=== PATIENT | female | born 1975 | race Caucasian/White ===

== ENCOUNTER → 2016-11-06 | Outpatient (CLI) | payer BC ==
--- NOTE | 2016-11-06 08:23 | USB ---
Reason for exam: follow-up at short interval from prior study. History: Family history of breast cancer in mother at age 55, breast cancer in maternal grandmother at age 70, and breast cancer in maternal aunt. Took hormonal contraceptives for 10 years. Physical Findings: Nurse did not find any significant physical abnormalities on exam. US Breast RT Right breast ultrasound including all four quadrants, the retroareolar region and axilla demonstrates a 0.4 x 0.4 x 0.3cm round lesion too small to characterize, a 0.6 x 0.3 x 0.6cm oval, solid, questionable node at 9 o'clock and a 0.6 x 0.3 x 0.6cm oval, solid, questionable node at 9 o'clock. These results were verbally communicated with the patient and result sheet given to the patient on 11/06/16. ASSESSMENT: Benign, BI-RAD 2 RECOMMENDATION: Return to routine screening mammogram schedule for both breasts. Back on schedule for December 2016.
== END | disposition home or self-care (01) ==
LOC: RADUSWWP 07:00
PROVIDERS: ATTEND Obstetrics & Gynecology
DX: R92.8 Other abnormal and inconclusive findings on diagnostic imaging of breast (principal)

== ENCOUNTER → 2017-01-16 | Outpatient (CLI) | payer BC ==
--- NOTE | 2017-01-17 10:43 | MM ---
Reason for exam: screening (asymptomatic). Last mammogram was performed 1 year ago. History: Family history of breast cancer in mother at age 55, breast cancer in maternal grandmother at age 70, and breast cancer in maternal aunt. Took hormonal contraceptives for 10 years. Physical Findings: A clinical breast exam by your physician is recommended on an annual basis and results should be correlated with mammographic findings. MG 3D Screening Mammo W/Cad Bilateral CC and MLO view(s) were taken. Prior study comparison: January 07, 2016, bilateral MG screening mammo w CAD. August 03, 2011, bilateral digital screening mammo w/CAD. The breast tissue is extremely dense which could obscure a lesion on mammography. There is no discrete abnormality. No significant changes when compared with prior studies. ASSESSMENT: Negative, BI-RAD 1 RECOMMENDATION: Routine screening mammogram of both breasts in 1 year.
== END ==
LOC: RADMAMWWP 07:01
PROVIDERS: ATTEND Obstetrics & Gynecology
DX: Z12.31 Encounter for screening mammogram for malignant neoplasm of breast (principal)
CPT/HCPCS: 77063; G0202

== ENCOUNTER → 2019-11-05 | Outpatient (CLI) | payer BC ==
--- NOTE | 2019-11-05 13:38 | MM ---
Reason for exam: clinical finding. Last mammogram was performed 2 years and 10 months ago. History: Family history of breast cancer in mother at age 55, breast cancer in maternal grandmother at age 70, and breast cancer in maternal aunt at age 60. Took hormonal contraceptives for 10 years. Indicated problem(s): lump or thickening in the right breast. Physical Findings: Nurse Summary: 0.5cm nodule in the right breast retroaeolar (nurse david). MG 3D Diag Mammo W/Cad [facility]AC Bilateral CC and MLO view(s) were taken. Prior study comparison: January 16, 2017, bilateral MG 3d screening mammo w/cad. January 07, 2016, bilateral MG screening mammo w CAD. The breast tissue is heterogeneously dense. This may lower the sensitivity of mammography. No suspicious abnormality in the left breast. Ductal ectasia on the right. These results were verbally communicated with the patient and result sheet given to the patient on 11/05/19. ASSESSMENT: Incomplete: need additional imaging evaluation, BI-RAD 0 RECOMMENDATION: Ultrasound of the right breast. (retroareolar, palpable)
--- NOTE | 2019-11-05 13:39 | USB ---
Reason for exam: additional evaluation requested from abnormal screening. History: Family history of breast cancer in mother at age 55, breast cancer in maternal grandmother at age 70, and breast cancer in maternal aunt at age 60. Took hormonal contraceptives for 10 years. US Breast Limited RT Right limited breast ultrasound including focal area of concern, retroareolar and axilla demonstrates a 0.7 x 0.9 x 0.5cm probable lymph node at 10 o'clock as seen on 11/06/16 and a 0.6 x 0.5 x 0.3cm mixed lesion at 12 o'clock, complicated cyst with enhancement. These results were verbally communicated with the patient and result sheet given to the patient on 11/05/19. ASSESSMENT: Probably benign, BI-RAD 3 RECOMMENDATION: Ultrasound of the right breast in 6 months.
== END | disposition home or self-care (01) ==
LOC: RADMAMWWP 08:19
PROVIDERS: ATTEND Obstetrics & Gynecology
DX: R92.8 Other abnormal and inconclusive findings on diagnostic imaging of breast (principal)
CPT/HCPCS: 77062; 77066

== ENCOUNTER → 2020-05-10 | Outpatient (CLI) | payer BC ==
--- NOTE | 2020-05-10 09:44 | USB ---
Reason for exam: follow-up at short interval from prior study. History: Family history of breast cancer in mother at age 55, breast cancer in maternal grandmother at age 70, and breast cancer in maternal aunt at age 60. Took hormonal contraceptives for 10 years. Physical Findings: Nurse did not find any significant physical abnormalities on exam. US Breast Limited RT Right limited breast ultrasound including focal area of concern, retroareolar and axilla demonstrates a 0.7 x 0.5 x 0.8cm lesion at 10 o'clock stable to 1mm smaller, also seen in 2017, benign, a 0.6 x 0.3 x 0.6cm mixed lesion at 12 o'clock versus 6 x 3 x 5mm previously suggesting benign complicated cyst and a 1.1 x 0.5 x 1.0cm benign, cystic cluster at 10 o'clock. These results were verbally communicated with the patient and result sheet given to the patient on 05/10/20. ASSESSMENT: Probably benign, BI-RAD 3 RECOMMENDATION: Follow-up diagnostic mammogram of both breasts in 6 months.
== END | disposition home or self-care (01) ==
LOC: RADUSWWP 08:43
PROVIDERS: ATTEND Obstetrics & Gynecology
DX: R92.8 Other abnormal and inconclusive findings on diagnostic imaging of breast (principal)

== ENCOUNTER → 2021-03-23 | Outpatient (CLI) | payer BC ==
--- NOTE | 2021-03-23 10:30 | MM ---
Reason for exam: additional evaluation requested from prior study. Last mammogram was performed 1 year and 5 months ago. History: Family history of breast cancer in mother at age 55, breast cancer in maternal grandmother at age 70, breast cancer in maternal aunt at age 60, breast cancer in maternal aunt at age 50, and breast cancer in aunt at age 50. Took hormonal contraceptives for 10 years. Physical Findings: Nurse did not find any significant physical abnormalities on exam. MG 3D Diag Mammo W/Cad ZAC Bilateral CC and MLO view(s) were taken. Prior study comparison: November 05, 2019, bilateral MG 3d diag mammo w/cad [facility]. January 16, 2017, bilateral MG 3d screening mammo w/cad. The breast tissue is extremely dense which could obscure a lesion on mammography. Follow up ultrasound for areas seen last time. These results were verbally communicated with the patient and result sheet given to the patient on 03/23/21. ASSESSMENT: Incomplete: need additional imaging evaluation, BI-RAD 0 RECOMMENDATION: Ultrasound of the right breast.
--- NOTE | 2021-03-23 10:32 | USB ---
Reason for exam: additional evaluation requested from abnormal screening. History: Family history of breast cancer in mother at age 55, breast cancer in maternal grandmother at age 70, breast cancer in maternal aunt at age 60, breast cancer in maternal aunt at age 50, and breast cancer in aunt at age 50. Took hormonal contraceptives for 10 years. US Breast Limited RT Right limited breast ultrasound including focal area of concern, retroareolar and axilla demonstrates a 0.9 x 0.8 x 0.6cm mixed lesion, fibrocystic change, stable at 10 o'clock, a 0.8 x 0.7 x 0.5cm cystic, simple cyst at 10 o'clock and a 0.7 x 0.7 x 0.3cm complex cyst or fibroadenoma at 12 o'clock, stable, benign appearing. These results were verbally communicated with the patient and result sheet given to the patient on 03/23/21. ASSESSMENT: Benign, BI-RAD 2 RECOMMENDATION: Routine screening mammogram of both breasts in 1 year.
== END | disposition home or self-care (01) ==
LOC: RADMAMWWP 07:29
PROVIDERS: ATTEND Obstetrics & Gynecology
DX: R92.2 Inconclusive mammogram (principal); N60.01 Solitary cyst of right breast; Z80.3 Family history of malignant neoplasm of breast
CPT/HCPCS: 77062; 77066

== ENCOUNTER 2021-03-24 06:50 | Day surgery (SDC) | payer BC ==
[2021-03-21 13:07] VITALS: BMI 26.9
[~2021-03-24 06:50] MED LIST: DEXAMETHASONE SOD PHOSPHATE 4 MG/ML 1 ML VIAL IV ONE; LACTATED RINGERS 1,000 ML IV SCH; LIDOCAINE 1% (10MG/ML) FOR IV START INTRADERMA PRN; ONDANSETRON 4 MG/2 ML VIAL IVP ONE; Pre Op ABX Message 1 EACH MISC MISCELLANE ONE
[2021-03-24 07:15] VITALS: RESP 16
[2021-03-24] MEDS ORDERED: LIDOCAINE 1% (10MG/ML) FOR IV START INTRADERMA ONE (07:25)
[2021-03-24] MEDS ORDERED: SCOPOLAMINE 1.5MG/72HR PATCH TRANSDERM ONE (07:25)
--- NOTE | 2021-03-24 07:41 | P.HPOB ---
History of Present Illness H&P Date: 03/24/21 Chief Complaint: menorrhagia 46 year old presents for D&C, hysteroscopy, endometrial ablation with NovaSure for menorrhagia. Review of Systems All systems: negative Constitutional: Denies chills, Denies fever Eyes: denies blurred vision, denies pain Ears, nose, mouth and throat: Denies headache, Denies sore throat Cardiovascular: Denies chest pain, Denies shortness of breath Respiratory: Denies cough Gastrointestinal: Denies abdominal pain, Denies diarrhea, Denies nausea, Denies vomiting Genitourinary: Denies dysuria, Denies hematuria Musculoskeletal: Denies myalgias Integumentary: Denies pruritus, Denies rash Neurological: Denies numbness, Denies weakness Psychiatric: Denies anxiety, Denies depression Endocrine: Denies fatigue, Denies weight change Past Medical History Additional Past Medical History / Comment(s): menorrhagia History of Any Multi-Drug Resistant Organisms: None Reported Past Surgical History: No Surgical Hx Reported Past Anesthesia/Blood Transfusion Reactions: No Reported Reaction Smoking Status: Former smoker - Past Family History Mother Family Medical History: Cancer Additional Family Medical History / Comment(s): breast Medications and Allergies Home Medications Medication Instructions Recorded Confirmed Type No Known Home Medications 03/21/21 03/21/21 History Allergies Allergy/AdvReac Type Severity Reaction Status Date / Time latex Allergy Unknown Verified 03/21/21 13:00 Exam Osteopathic Statement: *. No significant issues noted on an osteopathic structural exam other than those noted in the History and Physical/Consult. Vital Signs Temp Pulse Resp BP Pulse Ox 03/24/21 07:13 97.2 F L 61 16 100/64 100 Intake and Output 03/23/21 03/24/21 03/24/21 22:59 06:59 14:59 Other: Weight 69 kg Heart: Regular rate and rhythm Lungs: Clear to auscultation bilaterally Abdomen: Soft, nontender Extremities: Negative Homans sign Assessment and Plan (1) Menorrhagia Current Visit: Yes Status: Acute Code(s): N92.0 - EXCESSIVE AND FREQUENT MENSTRUATION WITH REGULAR CYCLE SNOMED Code(s): 212956034 Plan: 1. D&C, hysteroscopy, endometrial ablation with NovaSure.
[2021-03-24] MEDS ORDERED: PROPOFOL 10 MG/ML 20 ML VIAL IV ONE (07:49)
[2021-03-24] MEDS ORDERED: KETOROLAC 15 MG/ML 1 ML VIAL ONE (07:49)
[2021-03-24] MEDS ORDERED: fentaNYL (PF) 50 MCG/ML 2 ML AMP ONE (07:49)
[2021-03-24] MEDS ORDERED: MIDAZOLAM 2 MG/2 ML VIAL ONE (07:49)
[2021-03-24] MEDS ORDERED: LIDOCAINE 1% INJ 10MG/ML (20 ML MDV) ONE (07:49)
[2021-03-24 08:39] VITALS: TEMP 97.6
--- NOTE | 2021-03-24 08:40 | P.OP ---
Date of Procedure: 03/24/21 Preoperative Diagnosis: 1. Menorrhagia Postoperative Diagnosis: 1. Menorrhagia Procedure(s) Performed: D&C, hysteroscopy, endometrial ablation with NovaSure Anesthesia: MAC Surgeon: Amanda Sood Estimated Blood Loss (ml): 3 IV fluids (ml): 300 Urine output (ml): 20 Pathology: other (Endometrial curettings) Condition: stable Disposition: PACU Operative Findings: Uterus sounded to 9 cm. The cavity length was 6.5 cm, width 4.2 cm, power 150 W, time of ablation 61 seconds. Adequate ablation after NovaSure. Description of Procedure: Patient is taken the operating room where general anesthesia was obtained without difficulty. She was prepped and draped in normal sterile fashion dorsal lithotomy position, legs placed in the candy cane stirrups. Bladder was drained of all urine. Weighted speculum placed in the vagina and the anterior lip the cervix was grasped with serial tooth tenaculum. The uterus sounded to 9 cm and the cervix under 2.5 cm making the cavity length 6.5 cm. The cervix was dilated to #8 Hegar dilator. Hysteroscopy was then performed. Both ostia were visualized and there was a smooth contour of the uterus. Sharp curet was then gently used to obtain endometrial curettings. The NovaSure was introduced into the uterus with a cavity length of 6.5 cm, width 4.2 cm. after cavity assessment was passed, the time of ablation was 61 seconds at 150 W. Hysteroscopy was again performed and adequate ablation was noted. All instruments removed from the vagina. Patient tolerated the procedure well, sponge and instrument counts were correct 2 and she was taken to recovery in stable condition.
[2021-03-24 09:46] VITALS: BP 114/71; PULSE 46
== END 2021-03-24 10:06 | disposition home or self-care (01) ==
LOC: OR 06:50
PROVIDERS: ATTEND Obstetrics & Gynecology
DX: N92.0 Excessive and frequent menstruation with regular cycle (principal); K21.9 Gastro-esophageal reflux disease without esophagitis; Z87.891 Personal history of nicotine dependence; Z80.3 Family history of malignant neoplasm of breast; Z91.040 Latex allergy status
CPT/HCPCS: 81025; 88305; 58563; J2250; J1100; J2405; J2001; J3010; J1885; J2704

== ENCOUNTER → 2022-05-26 | Outpatient (CLI) | payer BC ==
--- NOTE | 2022-05-26 07:41 | MM ---
Reason for Exam: Screening (asymptomatic). Last mammogram was performed 1 year(s) and 3 month(s) ago. Patient History: Menarche at age 13. First Full-Term at age 24. Patient used Hormonal Contraceptives for 10 years. Maternal grandmother had breast cancer, age 70. Maternal aunt had breast cancer, age 60. Maternal aunt had breast cancer, age 50. Maternal aunt had breast cancer, age 50. Mother had breast cancer, age 55. Risk Values: Bella 5 year model risk: 1.6%. NCI Lifetime model risk: 17.3%. Prior Study Comparison: 01/16/2017 Bilateral Screening Mammogram, [facility]. 11/05/2019 Bilateral Diagnostic Mammogram, [facility]. 03/23/2021 Bilateral Diagnostic Mammogram, [facility]. Tissue Density: The breast tissue is heterogeneously dense. This may lower the sensitivity of mammography. Findings: Analyzed By CAD. There is a new grouping of fine calcifications within the upper outer mid left breast. Additional workup with magnification views is recommended. Right breast appear stable.Pattern appears symmetrical and stable. No suspicious spiculated or lobular masses, cluster microcalcifications, architectural distortion, or other secondary signs of malignancy radiographically apparent. Fine calcifications are within the left breast. No significant interval changes are evident. Overall Assessment: Benign, BI-RAD 2 Management: Screening Mammogram of both breasts in 1 year. A negative mammogram report should not preclude additional follow up of suspicious palpable abnormalities. Patient should continue monthly self breast exam. A clinical breast exam by your physician is recommended on an annual basis and results should be correlated with mammographic findings. Electronically signed and approved by: Vinicius Tidwell D.O. Radiologis
== END | disposition home or self-care (01) ==
LOC: RADMAMWWP 06:53
PROVIDERS: ATTEND Obstetrics & Gynecology
DX: Z12.31 Encounter for screening mammogram for malignant neoplasm of breast (principal); Z80.3 Family history of malignant neoplasm of breast
CPT/HCPCS: 77063; 77067

== ENCOUNTER → 2023-05-31 | Outpatient (CLI) | payer BC ==
--- NOTE | 2023-06-01 08:44 | MM ---
Reason for Exam: Screening (asymptomatic). Last screening mammogram was performed 12 month(s) ago. Patient History: Menarche at age 13. First Full-Term at age 24. Premenopausal. Patient used Hormonal Contraceptives for 10 years. Maternal grandmother had breast cancer, age 70. Maternal aunt had breast cancer, age 60. Maternal aunt had breast cancer, age 50. Mother had breast cancer, age 55. Risk Values: Bella 5 year model risk: 1.7%. NCI Lifetime model risk: 17.1%. Prior Study Comparison: 11/05/2019 Bilateral Diagnostic Mammogram, [facility]. 03/23/2021 Bilateral Diagnostic Mammogram, [facility]. 05/26/2022 Bilateral MG 3D screening mammo w/cad, [facility]. Tissue Density: The breast tissue is heterogeneously dense. This may lower the sensitivity of mammography. Findings: Analyzed By CAD. There is no suspicious group of microcalcifications or new suspicious mass. Overall Assessment: Negative, BI-RAD 1 Management: Screening Mammogram of both breasts in [address] [facility] will attempt to contact patient to return for supplemental views and ultrasound if indicated. Patient should continue monthly self-breast exams. A clinical breast exam by your physician is recommended on an annual basis. This exam should not preclude additional follow-up of suspicious palpable abnormalities. Note on Bella scores and lifetime risk: 1. A Bella score greater than 3% is considered moderate risk. If this is the case, consider specialist referral to assess eligibility for a risk reducing agent. 2. If overall lifetime risk for the development of breast cancer is 20% or higher, the patient may qualify for future screening with alternating mammogram and breast MRI. Electronically signed and approved by: Germán Puentes DO
== END | disposition home or self-care (01) ==
LOC: RADMAMWWP 07:06
PROVIDERS: ATTEND Obstetrics & Gynecology
DX: Z12.31 Encounter for screening mammogram for malignant neoplasm of breast (principal); Z80.3 Family history of malignant neoplasm of breast
CPT/HCPCS: 77063; 77067

== ENCOUNTER → 2024-07-15 | Outpatient (CLI) | payer BC ==
--- NOTE | 2024-07-16 11:34 | MM ---
Reason for Exam: Screening (asymptomatic). Last mammogram was performed 1 year(s) and 1 month(s) ago. Patient History: Menarche at age 13. First Full-Term at age 24. Premenopausal. Patient has history of breast feeding. Patient used Hormonal Contraceptives for 10 years. Maternal grandmother had breast cancer, age 70. Maternal aunt had breast cancer, age 60. Maternal aunt had breast cancer, age 50. Mother had breast cancer, age 55. Risk Values: Bella 5 year model risk: 1.7%. NCI Lifetime model risk: 16.9%. Prior Study Comparison: 01/07/2016 Bilateral Screening Mammogram, [facility]. 01/16/2017 Bilateral Screening Mammogram, [facility] 11/05/2019 Bilateral Diagnostic Mammogram, [facility] 03/23/2021 Bilateral Diagnostic Mammogram, [facility]. 05/26/2022 Bilateral MG 3D screening mammo w/cad, [facility]. 05/31/2023 Bilateral MG 3D screening mammo w/cad, [facility]. Tissue Density: The breasts are heterogeneously dense, which may obscure small masses. Findings: Analyzed By CAD. There is no suspicious group of microcalcifications or new suspicious mass in either breast. Overall Assessment: Benign, BI-RAD 2 Management: Screening Mammogram of both breasts in 1 year. . Patient should continue monthly self-breast exams. A clinical breast exam by your physician is recommended on an annual basis. This exam should not preclude additional follow-up of suspicious palpable abnormalities. Note on Bella scores and lifetime risk: 1. A Bella score greater than 3% is considered moderate risk. If this is the case, consider specialist referral to assess eligibility for a risk reducing agent. 2. If overall lifetime risk for the development of breast cancer is 20% or higher, the patient may qualify for future screening with alternating mammogram and breast MRI. [facility], , 07/16/2024 11:13 AM. Electronically signed and approved by: Cachorro Hawthorne M.D. Radiologis
== END | disposition home or self-care (01) ==
LOC: RADMAMWWP 07:04
PROVIDERS: ATTEND Obstetrics & Gynecology
CPT/HCPCS: 77063; 77067